=== PATIENT | male | born 1965 | race Caucasian/White ===

== ENCOUNTER 2017-06-07 09:46 | Emergency (ER) | payer SELFPAY ==
[2017-06-07 10:01] VITALS: BP 158/68; PULSE 84; RESP 16; TEMP 98.3; O2SAT 98
[2017-06-07] MEDS ORDERED: BACT800T5 PO (11:55)
--- NOTE | 2017-06-07 11:55 | PD ---
HPI Chief Complaint: Skin Problem Time Seen by Provider: 11:37 Travel History International Travel<30 days: No Contact w/Intl Traveler<30days: No Traveled to known affect area: No History of Present Illness HPI 52-year-old male presents to emergency department with complaint of an abscess to his right facial cheek 1 week. Reports swelling and redness. Says it started draining a very small amount of drainage today. Denies history of MRSA. Denies fever, vomiting. Denies pain. Has tried squeezing the area to get it to drain. Has not taken any medications or try any other treatments to alleviate his symptoms. No known aggravating or relieving factors. No primary care provider. Denies significant past medical history. Allergies to codeine. Has no other medical complaints. No other modifying factors or associated signs and symptoms. [facility] Social History Tobacco Use: No Allergies-Medications (Allergen,Severity, Reaction): Coded Allergies: codeine (Verified Allergy, Unknown, 06/07/17) Reported Meds & Prescriptions Reported Meds & Active Scripts Active Bactrim DS (Sulfamethoxazole-Trimethoprim) 800-160 Mg Tab 1 Tab PO BID 10 Days Review of Systems Except as stated in HPI: all other systems reviewed are Neg Physical Exam Narrative GENERAL: Well-nourished, well-developed male patient, in no acute distress; afebrile, nontoxic-appearing; disheveled SKIN: There is an indurated area to the right facial cheek which measures about 1.5 cm in diameter. It is fluctuant but there is no pointing or drainage. There is a zone of inflammation around it but no lymphangitis. HEAD: Atraumatic. Normocephalic. EYES: Pupils equal and round. No scleral icterus. No injection or drainage. ENT: Mucosa pink and moist. Airway patent. NECK: Trachea midline. CARDIOVASCULAR: Regular rate. RESPIRATORY: No accessory muscle use. GASTROINTESTINAL: Flat. MUSCULOSKELETAL: No obvious deformities. No clubbing. No cyanosis. No edema. NEUROLOGICAL: Awake and alert. Oriented 3. No obvious cranial nerve deficits. Motor grossly within normal limits. Normal speech. PSYCHIATRIC: Appropriate mood and affect; insight and judgment normal. Data Data Last Documented VS Vital Signs Date Time Temp Pulse Resp B/P (MAP) Pulse Ox O2 Delivery O2 Flow Rate FiO2 06/07/17 10:01 98.3 84 16 158/68 (98) 98 Orders Orders Ed Discharge Order (06/07/17 11:55) Wound Culture And Gram Stain (06/07/17 11:55) MDM Medical Decision Making Medical Screen Exam Complete: Yes Emergency Medical Condition: Yes Medical Record Reviewed: Yes Differential Diagnosis Facial abscess, folliculitis, cellulitis Narrative Course 52-year-old male with an abscess to his right facial cheek. He is afebrile and nontoxic-appearing. Denies fever, vomiting. Denies pain. See my procedure note for incision and drainage of the abscess. Wound culture pending. Bactrim prescribed for home. Instructed patient to follow up with primary care provider. Patient verbalizes understanding and agreement with treatment plan. Patient is medically cleared and stable for discharge. Discussed reasons to return to the emergency department. Patient agrees with treatment plan. The patients vital signs are stable and the patient is stable for outpatient follow- up and treatment. Patient discharged home, stable and in no acute distress. Procedures Procedure Narrative INCISION AND DRAINAGE OF ABSCESS: The area was prepped and was sterilely draped. A subcutaneous wheal of 1 % Xylocaine with a total number 1 mL was used to anesthetize the area properly. A number 11 scalpel was used to make a pinpoint incision into the area of the abscess. The abscess was drained, complex loculations were broken down, and irrigated with normal saline. Cultures were obtained. Sterile dressing applied. Diagnosis Primary Impression: Facial abscess Referrals: [facility] Primary Care Physician Patient Instructions: Abscess (ED), Abscess Follow-up (ED), General Instructions Additional Instructions: Complete full course of antibiotics Warm compresses to the affected area Keep area clean and dry Ibuprofen or Tylenol as directed and as needed for pain and inflammation Follow-up with primary care provider Return to emergency department immediately with worsening of symptoms Med/Other Pt SpecificInfo: Prescription(s) given Scripts Sulfamethoxazole-Trimethoprim (Bactrim DS) 800-160 Mg Tab 1 TAB PO BID for Infection for 10 Days, #20 TAB 0 Refills Prov: Zoya Cano 06/07/17 Disposition: 01 DISCHARGE HOME Condition: Stable Zoya Cnao Jun 07, 2017 11:55
== END 2017-06-07 12:07 | disposition home or self-care (01) ==
LOC: NEPK 09:46
DX: L02.01 Cutaneous abscess of face (principal)
CPT/HCPCS: 10060; 86403; 87070